=== PATIENT | male | born 1980 | race Caucasian/White ===

== ENCOUNTER 2017-12-28 13:30 | Emergency (ER) | payer BC ==
--- NOTE | 2017-12-28 16:22 | RAD REPORT ---
EXAM DESCRIPTION: VAS - Extremity Venous Uni Ltd - 12/28/2017 4:15 pm CLINICAL HISTORY: Leg swelling and edema. COMPARISON: None. FINDINGS: Left lower extremity venous system was interrogated with Doppler technique. Normal flow, c ompressibility and augmentation was noted. There is no DVT present. IMPRESSION: No evidence of left lower extremity deep venous thrombosis.
--- NOTE | 2017-12-28 16:27 | ER ---
Nurse's Notes [facility] Name: Damon Bangura Jr Age: 37 yrs Sex: Male : 1980 Arrival Date: 12/28/2017 Time: 13:46 Bed 27 Private MD: Diagnosis: Localized swelling, mass and lump, left lower limb Presentation: 12/28 13:54 Presenting complaint: Patient states: Pain and burning in left leg for months. Patient aj reports pain is worse today after walking a lot yesterday. Transition of care: patient was not received from another setting of care. Onset of symptoms was November 2017. Care prior to arrival: None. 13:54 Method Of Arrival: Ambulatory aj 13:54 Acuity: [place] 3 aj Triage Assessment: 13:55 General: Appears in no apparent distress. comfortable, Behavior is calm, cooperative, aj appropriate for age. Pain: Complains of pain in left leg Pain currently is 2 out of 10 on a pain scale. Neuro: Level of Consciousness is awake, alert, obeys commands, Oriented to person, place, time, situation. Respiratory: Airway is patent Respiratory effort is even, unlabored, Respiratory pattern is regular, symmetrical. Derm: Skin is intact, is healthy with good turgor, Skin is pink, warm \T\ dry. normal. Musculoskeletal: Reports pain in left hamstring, posterior aspect of left knee and left calf. Historical: - Allergies: 13:55 No Known Allergies; aj - Home Meds: 13:55 None [Active]; aj - PMHx: 13:55 None; aj - PSHx: 13:55 back surgery; aj - Immunization history:: Adult Immunizations up to date. - Social history:: Smoking status: Patient uses tobacco products, smokes one-half pack cigarettes per day. Screenin:15 Abuse screen: Denies threats or abuse. Nutritional screening: No deficits noted. rk2 Tuberculosis screening: No symptoms or risk factors identified. Fall Risk None identified. Assessment: 15:16 General: Appears in no apparent distress. slender, well groomed, well developed, well rk2 nourished, Behavior is calm, cooperative. Pain: Complains of pain in left calf and posterior aspect of left knee and left hamstring and left leg. Neuro: Level of Consciousness is alert, obeys commands, Oriented to person, place, time, situation. Respiratory: Airway is patent Respiratory effort is even, unlabored, Respiratory pattern is regular, symmetrical. Derm: Skin is pink, warm \T\ dry. Musculoskeletal: Capillary refill < 3 seconds, Good distal pulses. 16:24 Reassessment: Pt. returned from US by wheelchair... resting in room \T\ this time in no rk2 obvious distress. No needs voiced. Vital Signs: 13:55 BP 132 / 91; Pulse 76; Resp 17; Temp 98.0; Pulse Ox 97% on R/A; Weight 98.43 kg; Height aj 6 ft. 1 in. (185.42 cm); Pain 2/10; 16:45 BP 123 / 87; Pulse 61; Resp 16; Pulse Ox 99% on R/A; rk2 13:55 Body Mass Index 28.63 (98.43 kg, 185.42 cm) ED Course: 13:46 Patient arrived in ED. as 13:55 Triage completed. aj 13:55 Arm band placed on right wrist. Patient placed in waiting room, Patient notified of wait time. 14:56 Mana Barroso, ELADIO is Primary Nurse. rk2 14:59 Ozzie Guerrero PA is PHCP. jr8 14:59 Iker Murphy MD is Attending Physician. jr8 15:15 Patient has correct armband on for positive identification. Bed in low position. Call rk2 light in reach. 16:14 Ultrasound completed. Patient tolerated well. aa4 16:15 US Extremity Venous Uni Ltd In Process Unspecified. EDAL 16:25 Angel Roth DO is Referral Physician. jr8 16:54 No provider procedures requiring assistance completed. Patient did not have IV access rk2 during this emergency room visit. Administered Medications: No medications were administered Outcome: 16:26 Discharge ordered by . jr8 16:54 Discharged to home ambulatory. rk2 16:54 Condition: good 16:54 Discharge instructions given to patient. 16:55 Patient left the ED. rk2 Signatures: Dispatcher [employer] Shonda Rodgers, RN RN Alena Banerjee Amanda aa4 Ozzie Guerrero PA PA jr8 Mana Barroso RN RN rk2
--- NOTE | 2017-12-28 16:27 | EDPHYS ---
Physician Documentation [facility] Name: Damon Bangura Jr Age: 37 yrs Sex: Male : 1980 Arrival Date: 12/28/2017 Time: 13:46 Bed 27 Private MD: ED Physician Iker Murphy HPI: 12/28 15:28 This 37 yrs old Male presents to ER via Ambulatory with complaints of Leg jr8 Swelling. 15:28 The patient presents with pain, swelling. The complaints affect the medial aspect of jr8 left calf. Onset: The symptoms/episode began/occurred gradually, at an unknown time. Modifying factors: The symptoms are alleviated by nothing. the symptoms are aggravated by movement, weight bearing. Associated signs and symptoms: The patient has no apparent associated signs or symptoms. Severity of symptoms: At their worst the symptoms were mild, in the emergency department the symptoms are unchanged. The patient has not experienced similar symptoms in the past. The patient has not recently seen a physician. Patient stated that he noticed burning to left leg and swelling to medial aspect of leg. Has been going on for some time but now worse. Tried to find a PCP but has not been able to get into one. Historical: - Allergies: 13:55 No Known Allergies; aj - Home Meds: 13:55 None [Active]; aj - PMHx: 13:55 None; aj - PSHx: 13:55 back surgery; aj - Immunization history:: Adult Immunizations up to date. - Social history:: Smoking status: Patient uses tobacco products, smokes one-half pack cigarettes per day. ROS: 15:28 Eyes: Negative for injury, pain, redness, and discharge, ENT: Negative for injury, jr8 pain, and discharge, Neck: Negative for injury, pain, and swelling, Cardiovascular: Negative for chest pain, palpitations, and edema, Respiratory: Negative for shortness of breath, cough, wheezing, and pleuritic chest pain, Abdomen/GI: Negative for abdominal pain, nausea, vomiting, diarrhea, and constipation, Back: Negative for injury and pain, Skin: Negative for injury, rash, and discoloration, Neuro: Negative for headache, weakness, numbness, tingling, and seizure. 15:28 MS/extremity: Positive for pain, swelling, of the medial aspect of left calf. Exam: 15:28 Head/Face: Normocephalic, atraumatic. Eyes: Pupils equal round and reactive to light, jr8 extra-ocular motions intact. Lids and lashes normal. Conjunctiva and sclera are non-icteric and not injected. Cornea within normal limits. Periorbital areas with no swelling, redness, or edema. ENT: Nares patent. No nasal discharge, no septal abnormalities noted. Tympanic membranes are normal and external auditory canals are clear. Oropharynx with no redness, swelling, or masses, exudates, or evidence of obstruction, uvula midline. Mucous membranes moist. Neck: Trachea midline, no thyromegaly or masses palpated, and no cervical lymphadenopathy. Supple, full range of motion without nuchal rigidity, or vertebral point tenderness. No Meningismus. Cardiovascular: Regular rate and rhythm with a normal S1 and S2. No gallops, murmurs, or rubs. Normal PMI, no JVD. No pulse deficits. Respiratory: Lungs have equal breath sounds bilaterally, clear to auscultation and percussion. No rales, rhonchi or wheezes noted. No increased work of breathing, no retractions or nasal flaring. Abdomen/GI: Soft, non-tender, with normal bowel sounds. No distension or tympany. No guarding or rebound. No evidence of tenderness throughout. Back: No spinal tenderness. No costovertebral tenderness. Full range of motion. Skin: Warm, dry with normal turgor. Normal color with no rashes, no lesions, and no evidence of cellulitis. Neuro: Awake and alert, GCS 15, oriented to person, place, time, and situation. Cranial nerves II-XII grossly intact. Motor strength 5/5 in all extremities. Sensory grossly intact. Cerebellar exam normal. Normal gait. 15:28 Musculoskeletal/extremity: Extremities: grossly normal except: noted in the left leg: Patient has mild tenderness to medial aspect of calf. Swelling noted to medial aspect. No discoloration of skin. Mild varicosity noted to bilateral legs. 2+ pulses bilaterally PT/DP. No erythema or circumferential calf enlargement to left side , ROM: intact in all extremities, Circulation is intact in all extremities. Sensation intact. Vital Signs: 13:55 BP 132 / 91; Pulse 76; Resp 17; Temp 98.0; Pulse Ox 97% on R/A; Weight 98.43 kg; Height aj 6 ft. 1 in. (185.42 cm); Pain 2/10; 16:45 BP 123 / 87; Pulse 61; Resp 16; Pulse Ox 99% on R/A; rk2 13:55 Body Mass Index 28.63 (98.43 kg, 185.42 cm) MDM: 14:59 Patient medically screened. jr8 16:25 Data reviewed: vital signs, nurses notes, radiologic studies, ultrasound, and as a jr8 result, I will discharge patient. Data interpreted: Pulse oximetry: on room air is 97 %. Interpretation: normal. Counseling: I had a detailed discussion with the patient and/or guardian regarding: the historical points, exam findings, and any diagnostic results supporting the discharge/admit diagnosis, the need for outpatient follow up, a family practitioner, to return to the emergency department if symptoms worsen or persist or if there are any questions or concerns that arise at home. ED course: No acute DVT seen. To f/u with PCP for further work up of isolated swelling to left lower extremity . 12/28 15:21 Order name: US Extremity Venous Uni Ltd; Complete Time: 16:24 jr8 Administered Medications: No medications were administered Disposition: 12/28/17 16:26 Discharged to Home. Impression: Localized swelling, mass and lump, left lower limb. - Condition is Stable. - Discharge Instructions: Deep Vein Thrombosis. - Medication Reconciliation Form, Thank You Letter, Antibiotic Education, Prescription Opioid Use form. - Follow up: Angel Roth DO; When: 2 - 3 days; Reason: Recheck today's complaints, Continuance of care, Re-evaluation by your physician. - Problem is new. - Symptoms have improved. Addendum: 12/30/2017 06:18 Co-signature as Attending Physician, Iker Murphy MD. g s Signatures: Dispatcher [employer] Shonda Rodgers RN RN Ozzie Coyne PA PA jr8 Iker Murphy MD MD gs Kidder, Rhonda, RN RN rk2
== END 2017-12-28 16:55 | disposition home or self-care (01) ==
LOC: ER 13:30
DX: R22.42 Localized swelling, mass and lump, left lower limb (principal); F17.210 Nicotine dependence, cigarettes, uncomplicated
CPT/HCPCS: 93971; 99283

== ENCOUNTER 2021-03-15 17:19 | Emergency (ER) | payer BC ==
[2021-03-15] MEDS ORDERED: predniSONE 20 MG TAB ONE (18:21)
[2021-03-15] MEDS ORDERED: FAMOTIDINE 20 MG TAB ONE (18:21)
--- NOTE | 2021-03-15 18:39 | EDPHYS ---
Physician Documentation [facility] Name: Damon Bangura Jr Age: 40 yrs Sex: Male : 1980 Arrival Date: 03/15/2021 Time: 17:23 Bed Waiting Private MD: ED Physician Chase Morton HPI: 03/15 19:42 This 40 yrs old Male presents to ER via Ambulatory with complaints of Bee kb Sting. 19:43 The patient presents with chest pain, itching. Onset: The symptoms/episode kb began/occurred yesterday. Associated signs and symptoms: Pertinent positives: chest pain, swollen areas where bees stung. Possible causes: bees. At home the patient or guardian has treated the symptoms with Benadryl. Severity of symptoms: At their worst the symptoms were mild moderate in the emergency department the symptoms are unchanged. The patient has not experienced similar symptoms in the past. The patient has not recently seen a physician. Historical: - Allergies: 17:48 No Known Allergies; ss - PSHx: 17:48 back surgery; ss - Immunization history:: Adult Immunizations up to date. - Social history:: Smoking status: Patient reports the use of cigarette tobacco products, smokes one-half pack cigarettes per day. ROS: 19:41 Constitutional: Negative for fever, chills, and weight loss, Respiratory: Negative for kb shortness of breath, cough, wheezing, and pleuritic chest pain, Abdomen/GI: Negative for abdominal pain, nausea, vomiting, diarrhea, and constipation. 19:41 Neck: Positive for swollen nodes. 19:41 Cardiovascular: Positive for chest pain, Negative for edema, orthopnea, palpitations, paroxysmal nocturnal dyspnea. 19:41 Skin: Positive for bee stings. 19:41 All other systems are negative. Exam: 19:40 Constitutional: This is a well developed, well nourished patient who is awake, alert, kb and in no acute distress. Head/Face: Normocephalic, atraumatic. ENT: Moist Mucous membranes Cardiovascular: Regular rate and rhythm with a normal S1 and S2. No gallops, murmurs, or rubs. No pulse deficits. Respiratory: Respirations even and unlabored. No increased work of breathing, no retractions or nasal flaring. Abdomen/GI: Soft, non-tender. No distention MS/ Extremity: Pulses equal, no cyanosis. Neurovascular intact. Full, normal range of motion. Neuro: Awake and alert, GCS 15, oriented to person, place, time, and situation. Moves all extremities. Normal gait. Psych: Awake, alert, with orientation to person, place and time. Behavior, mood, and affect are within normal limits. 19:40 ECG was reviewed by the Attending Physician. 19:42 Neck: Lymph nodes: lymphadenopathy is appreciated, anterior cervical nodes. kb 19:42 Skin: bee stings noted to head, neck, trunk and left arm. Vital Signs: 17:50 BP 144 / 93; Pulse 64; Resp 16; Temp 97.9; Pulse Ox 99% on R/A; Weight 101.6 kg; Height ss 6 ft. 1 in. (185.42 cm); Pain 0/10; 17:50 Body Mass Index 29.55 (101.60 kg, 185.42 cm) ss MDM: 17:52 Patient medically screened. kb 19:42 Data reviewed: vital signs, nurses notes. Data interpreted: Pulse oximetry: on room air kb is 99 %. Interpretation: normal. Counseling: I had a detailed discussion with the patient and/or guardian regarding: the historical points, exam findings, and any diagnostic results supporting the discharge/admit diagnosis, the need for outpatient follow up, a family practitioner, to return to the emergency department if symptoms worsen or persist or if there are any questions or concerns that arise at home. EC:40 Rate is 65 beats/min. Rhythm is regular. QRS [place] is Normal. MA interval is normal at kb 168 msec. QRS interval is normal at 100 msec. QT interval is normal at 380 msec. Administered Medications: 18:01 Drug: predniSONE 40 mg Route: PO; 18:02 Drug: Pepcid (famotidine) 20 mg Route: PO; Disposition: 03/16 07:18 I agree with the assessment and plan of care. [facility] Disposition: 03/15/21 18:39 Discharged to Home. Impression: Bee allergy status. - Condition is Stable. - Discharge Instructions: Bee, Wasp, or Hornet Sting, Adult. - Prescriptions for Pepcid 20 mg Oral Tablet - take 1 tablet by ORAL route every 12 hours for 5 days; 10 tablet. Prednisone 20 mg Oral Tablet - take 1 tablet by ORAL route once daily for 5 days; 5 tablet. - Medication Reconciliation Form, Thank You Letter, Antibiotic Education, Prescription Opioid Use form. - Follow up: Emergency Department; When: As needed; Reason: Worsening of condition. Follow up: Private Physician; When: 2 - 3 days; Reason: Recheck today's complaints, Continuance of care, Re-evaluation by your physician. Signatures: Yancy Amador, [employer]Ckb Chase Morton MD MD cha Williams, Irene, RN RN iw Smirch, Shelby, RN RN ss Corrections: (The following items were deleted from the chart) 03/15 18:51 18:39 03/15/2021 18:39 Discharged to Home. Impression: Bee allergy status. Condition is iw Stable. Forms are Medication Reconciliation Form, Thank You Letter, Antibiotic Education, Prescription Opioid Use. Follow up: Emergency Department; When: As needed; Reason: Worsening of condition. Follow up: Private Physician; When: 2 - 3 days; Reason: Recheck today's complaints, Continuance of care, Re-evaluation by your physician. kb 19:43 19:40 Constitutional: This is a well developed, well nourished patient who is awake, kb alert, and in no acute distress. Head/Face: Normocephalic, atraumatic. ENT: Moist Mucous membranes Cardiovascular: Regular rate and rhythm with a normal S1 and S2. No gallops, murmurs, or rubs. No pulse deficits. Respiratory: Respirations even and unlabored. No increased work of breathing, no retractions or nasal flaring. Abdomen/GI: Soft, non-tender. No distention MS/ Extremity: Pulses equal, no cyanosis. Neurovascular intact. Full, normal range of motion. Neuro: Awake and alert, GCS 15, oriented to person, place, time, and situation. Moves all extremities. Normal gait. Psych: Awake, alert, with orientation to person, place and time. Behavior, mood, and affect are within normal limits. kb 19:43 19:42 Skin: bee stings noted to trunk and left arm. kb kb
--- NOTE | 2021-03-15 18:52 | ER ---
Nurse's Notes [facility] Name: Damon Bangura Jr Age: 40 yrs Sex: Male : 1980 Arrival Date: 03/15/2021 Time: 17:23 Bed Waiting Private MD: Diagnosis: Bee allergy status Presentation: 03/15 17:47 Chief complaint: Patient states: multiple bee stings that occurred 24 hours ago. Pt c/o ss Chest discomfort and numbness to L arm. Coronavirus screen: Client denies travel out of the [place] in the last 14 days. Ebola Screen: Patient denies exposure to infectious person. Patient denies travel to an Ebola-affected area in the 21 days before illness onset. Onset: The symptoms/episode began/occurred 24 hour(s) ago. Anaphylaxis evaluation, no signs or symptoms of anaphylaxis were noted. Initial Sepsis Screen: Does the patient meet any 2 criteria? No. Patient's initial sepsis screen is negative. Does the patient have a suspected source of infection? No. Patient's initial sepsis screen is negative. Risk Assessment: Do you want to hurt yourself or someone else? Patient reports no desire to harm self or others. Onset of symptoms was March 14, 2021. 17:47 Method Of Arrival: Ambulatory ss 17:47 Acuity: [place] 4 ss Historical: - Allergies: 17:48 No Known Allergies; ss - PSHx: 17:48 back surgery; ss - Immunization history:: Adult Immunizations up to date. - Social history:: Smoking status: Patient reports the use of cigarette tobacco products, smokes one-half pack cigarettes per day. Vital Signs: 17:50 BP 144 / 93; Pulse 64; Resp 16; Temp 97.9; Pulse Ox 99% on R/A; Weight 101.6 kg; Height ss 6 ft. 1 in. (185.42 cm); Pain 0/10; 17:50 Body Mass Index 29.55 (101.60 kg, 185.42 cm) ss ED Course: 17:23 Patient arrived in ED. ds1 17:48 Triage completed. ss 17:48 Arm band placed on right wrist. ss 17:52 Yancy Amador FNP-C is PHCP. kb 17:52 Chase Morton MD is Attending Physician. kb 17:58 EKG done, by ED staff, reviewed by Yancy SHARMA. ss 18:51 Romelia Lance, RN is Primary Nurse. iw Administered Medications: 18:01 Drug: predniSONE 40 mg Route: PO; ss 18:02 Drug: Pepcid (famotidine) 20 mg Route: PO; ss Outcome: 18:39 Discharge ordered by . kb 18:51 Patient left the ED. iw Signatures: Yancy Amador FNP-C FNP-CkHaydee Gale ds1 Romelia Lance RN RN Noemy Grullon RN RN ss Corrections: (The following items were deleted from the chart) 17:51 17:47 Acuity: [place] 3 ss ss
[2021-03-15 18:56] VITALS: BP 144/93; TEMP 97.9; O2SAT 99
--- NOTE | 2021-03-16 10:28 | EKG ---
Test Date: 2021-03-15 Test Time: 17:56:25 [employer] Architect: ALEX MEASUREMENT RESULTS: Intervals: Rate: 65 ND: 168 QRSD: 100 QT: 380 QTc: 395 [place]: P: 1 ND: 168 QRS: 29 T: 32 INTERPRETIVE STATEMENTS: Normal sinus rhythm Normal ECG No previous ECG available for comparison Electronically Signed On 03-16-21 10:25:44 CDT by Francois Macias
== END 2021-03-15 18:51 | disposition home or self-care (01) ==
LOC: ER 17:19
DX: T63.441A Toxic effect of venom of bees, accidental (unintentional), initial encounter (principal); R07.9 Chest pain, unspecified; F17.210 Nicotine dependence, cigarettes, uncomplicated; Z91.030 Bee allergy status
CPT/HCPCS: 93005; 99283; J7512